=== PATIENT | male | born 1980 | race Two or more races ===

== ENCOUNTER 2019-11-28 19:52 | Emergency (ER) | payer OTHER ==
[~2019-11-28] VITALS: Ht 172.7 cm; Wt 78.0 kg
[2019-11-28] MEDS ORDERED: LORAZEPAM INJ 2 MG/ML VIAL ONE (19:57)
[2019-11-28] MEDS ORDERED: HALOPERIDOL LACTATE INJ 5 MG/ML VIAL ONE (19:57)
[2019-11-28] MEDS ORDERED: diphenhydrAMINE HCL 50 MG/ML VIAL ONE (19:57)
[2019-11-28] MEDS ORDERED: diphenhydrAMINE HCL 50 MG/ML VIAL IM ONE (20:00)
--- NOTE | 2019-11-28 20:00 | NUR ---
PT MARIO AND [employer] FROM STREET. PER RA, PT WAS COMPLAINING OF SUICIDAL IDEATION AND [employer] WAS TRANSFERRING PT TO PSYCH FACILITY. EN ROUTE, PT STARTED COMPLAINING OF ABDOMINAL PAIN AND WAS BROUGHT TO [facility] ER. PT AWAKE, VERBALLY AND PHYSICALLY AGGRESSIVE TOWARDS STAFF ON ARRIVAL. PT PLACED ON MONITOR, WILL CONTINUE TO MONITOR
--- NOTE | 2019-11-28 20:15 | NUR ---
IV INITIATED LAC 18G LABS DRAWN FROM SITE, PAROLE HEARING OFFICER AT BEDSIDE FOR COLLECTION. IV INTACT AND PATENT, PLACED ON SALINE LOCK
--- NOTE | 2019-11-28 20:20 | NUR ---
URINE COLLECTED AND SENT TO LAB
[2019-11-28 20:22] LABS: BASOPHILS # (AUTO) 0.1 /CMM (0.0-0.2); BASOPHILS % (AUTO) 0.8 % (0.0-2.0); EOSINOPHILS % (AUTO) 0.8 % (0.0-6.0); HEMATOCRIT 37 % (39-51); HEMOGLOBIN 12.6 g/dL (13.5-17.5); LYMPHOCYTES % (AUTO) 21.8 % (20.0-44.0); MEAN CORPUSCULAR HGB CONC 34 g/dl (31.0-36.0); MEAN CORPUSCULAR VOLUME 88 fL (80-96); MONOCYTES # (AUTO) 0.8 /CMM (0.1-1.30); MONOCYTES % (AUTO) 8.7 % (2.0-12.0); NEUTROPHILS # (AUTO) 6.4 /CMM (1.8-8.9); NEUTROPHILS % (AUTO) 67.9 % (43.0-81.0); PLATELET COUNT (AUTO) 273 /CMM (150-450); RED BLOOD CELL COUNT(AUTO) 4.16 MIL/uL (4.5-6.0); WHITE BLOOD COUNT (AUTO) 9.4 K/uL (4.3-11.0)
--- NOTE | 2019-11-28 20:28 | NUR ---
PT BROUGHT BY RADIOLOGY TO CT
[2019-11-28] MEDS ORDERED: HALOPERIDOL LACTATE INJ 5 MG/ML VIAL IM ONE (20:30)
[2019-11-28] MEDS ORDERED: LORAZEPAM INJ 2 MG/ML VIAL IM ONE (20:30)
[2019-11-28 20:32] LABS: CALCIUM, SERUM 8.9 mg/dL (8.5-10.1); CARBON DIOXIDE 23 mmol/L (21-32); CHLORIDE 98 mmol/L (98-107); CREATININE 1.3 mg/dL (0.6-1.3); GLUCOSE 108 mg/dL (74-106); POTASSIUM 3.4 mmol/L (3.5-5.1); SODIUM SERUM 133 mmol/L (136-145); UREA NITROGEN, BLOOD 18 mg/dL (7-18)
[2019-11-28 20:37] LABS: ALANINE AMINOTRANSFERASE 29 U/L (12-78); ALBUMIN 3.8 g/dL (3.4-5.0); ALKALINE PHOSPHATASE 87 U/L (46-116); ASPARTATE AMINOTRANSFERASE 32 U/L (15-37); BILIRUBIN,DIRECT 0.3 mg/dL (0.0-0.2); BILIRUBIN,TOTAL 1.1 mg/dL (0.2-1.0); TOTAL PROTEIN, SERUM 9.8 g/dL (6.4-8.2)
[2019-11-28 20:38] LABS: ACETAMINOPHEN < 2 ug/ml (10-30); ALCOHOL, BLOOD < 3 mg/dL (0-0); SALICYLATE < 2.8 mg/dL (2.8-20.0)
[2019-11-28 20:43] LABS: APPEARANCE,URINE Slightly Cloudy (CLEAR); BILIRUBIN,URINE SMALL (NEGATIVE); BLOOD, URINE Large Ery/uL (NEGATIVE); COLOR,URINE Yellow (YELLOW); KETONES,URINE 15 (NEGATIVE); LEUKOCYTE ESTERASE ,URINE Small (NEGATIVE); NITRITE, URINE Negative (NEGATIVE); PH,URINE 5.5 (5.0-8.0); PROTEIN,URINE >=300 mg/dl (NEGATIVE); UGLUCOSE Negative (NEGATIVE); UROBILINOGEN,URINE 0.2 EU/dL (0.2)
[2019-11-28 20:51] LABS: BACTERIA,URINE Moderate /HPF (None Seen); RBC,URINE 51-80 /HPF (0-2); SQUAMOUS EPITHELIAL CELL,UR Few /HPF (None Seen)
[2019-11-28] MEDS ORDERED: PIPERACILLIN /TAZOBACTAM 3.375 G in IV D5W 50 ML IV ONE (21:30)
[2019-11-28] MEDS ORDERED: POTASSIUM CL. PREMIX PERIPHER. 50 ML IV STA (21:44)
[2019-11-28] MEDS ORDERED: PIPERACILLIN /TAZOBACTAM 3.375 G VIAL IV ONE (21:45)
--- NOTE | 2019-11-28 21:47 | NUR ---
CALLED FOR [employer] APPRAISAL SPECIALIST, AWAITING CALL.
--- NOTE | 2019-11-28 21:55 | NUR ---
PAGED VAISHNAVI PROCTOR
--- NOTE | 2019-11-28 21:56 | NUR ---
DR EDMONDS IS ON THE PHONE WITH DR LARES
--- NOTE | 2019-11-28 21:56 | NUR ---
PT IS GOING TO [facility]
--- NOTE | 2019-11-28 22:07 | NUR ---
PER DR. LARES, UROLOGY MD STATES PT CAN BE DISCHARGED, NO NEED FOR ADMISSION. PT CURRENTLY LETHARGIC, ONCE AWAKE CAN BE EVALUATED BY CRISIS FOR SUICIDAL IDEATION/ HOLD PLACED BY [employer]
[2019-11-28] MEDS ORDERED: POTASSIUM CHLORIDE 20 MEQ TAB.PRT.SR PO ONE (23:30)
--- NOTE | 2019-11-29 01:46 | NUR ---
PATIENT IS AWAKE. AAOX4. NO SOB. BREATHING EVENLY AND UNLABORED ON ROOM AIR. CONNECTED TO MONITOR. SITTER AT BEDSIDE.
--- NOTE | 2019-11-29 01:48 | NUR ---
PATIENT ABLE TO SWALLOW WATER AND EAT FOOD.
[2019-11-29] MEDS ORDERED: POTASSIUM CHLORIDE 20 MEQ TAB.PRT.SR PO ONE (01:49)
--- NOTE | 2019-11-29 04:48 | NUR ---
PT NOW AAOX4. CALLED IT[facility] DUNLAP FOR CRISIS EVALUATION. NO ANSWER, LEFT MESSAGE. WILL FOLLOW UP
--- NOTE | 2019-11-29 05:30 | NUR ---
CALLED [facility] DUNLAP FOR EVALUATION. NO ANSWER, WILL FOLLOW UP
--- NOTE | 2019-11-29 06:09 | NUR ---
PATIENT IS SLEEPING. EASILY AROUSABLE THROUGH TOUCH AND VERBAL STIMULI. CONNECTED TO MONITOR. BREATHING EVENLY AND UNLABORED ON ROOM AIR. CONNECTED TO MONITOR. SITTER AT BEDSIDE
--- NOTE | 2019-11-29 06:27 | NUR ---
CALLED [facility] DUNLAP FOR EVALUATION. NO ANSWER, WILL FOLLOW UP
--- NOTE | 2019-11-29 08:26 | NUR ---
BREAKFAST TRAY PROVIDED, TOLERATING PO WELL
--- NOTE | 2019-11-29 11:44 | NUR ---
PATIENT ASLEEP IN BED, EASILY AROUSABLE BY VOICE. HOOKED TO MONITOR, VSS. WILL CONTINUE TO MONITOR ACCORDINGLY, SITTER AT BEDSIDE FOR SAFETY
[2019-11-29] MEDS ORDERED: HALOPERIDOL LACTATE INJ 5 MG/ML VIAL IM ONE (14:30)
[2019-11-29] MEDS ORDERED: MIDAZOLAM HCL 2 MG/2ML VIAL IM ONE (14:30)
[2019-11-29] MEDS ORDERED: HALOPERIDOL LACTATE INJ 5 MG/ML VIAL ONE (14:33)
[2019-11-29] MEDS ORDERED: MIDAZOLAM HCL 2 MG/2ML VIAL ONE (14:33)
--- NOTE | 2019-11-29 15:04 | NUR ---
[facility] received a call from ED RN Christophe requesting for SW to speak to the pt. Per MD notes, pt is a 38-year-old male, who presented to the ER yesterday because of acute suicidal ideation and acute abdominal pain. [employer] was called because he was verbal and that he was suicidal. However because he has abdominal pain EMS was called as well. CELSO and ITZ Saeed met with the pt bedside. Pt is alert and oriented x 4. Pt appears unkempt and disheveled. Pt UDS is positive for methamphetamines and cannabinoids. Pt reports he is actively suicidal with a plan to cut his wrists. Pt is requesting to go to [facility]. [facility] to initiate the process. [facility] contacted Harpreet at [facility] to initiate voluntary psychiatric hospitalization.
--- NOTE | 2019-11-29 15:15 | NUR ---
Clinicals faxed to [facility] intake dept and ED CRN Gener has been updated. Per Harpreet at [facility] they will have a bed for the pt. Water Filterer is available for support as needed.
--- NOTE | 2019-11-29 15:52 | NUR ---
FAXED CLINICALS TO [facility]
--- NOTE | 2019-11-29 17:18 | NUR ---
PATIENT ACCEPTED TO [facility]. PATIENT WILL GO TO UNIT [address] ACCEPTING: DR VELASQUEZ NO. FOR REPORT: [phone] EXT [phone]
--- NOTE | 2019-11-29 17:28 | NUR ---
REPORT GIVEN TO PEDRO MOBLEY OF [facility]
--- NOTE | 2019-11-29 17:35 | NUR ---
CALLED [id number] WILL CALL BACK WITH ETA RES#[id number]
--- NOTE | 2019-11-29 18:16 | NUR ---
[facility] ETA 2000
[2019-11-29] MEDS ORDERED: SULFAMETH/TRIMETH 800/160 MG 1 UDTAB TABLET PO ONE (19:30)
[2019-11-29] MEDS ORDERED: SULFAMETH/TRIMETH 800/160 MG 1 UDTAB TABLET ONE (19:49)
--- NOTE | 2019-11-29 20:34 | NUR ---
REPORT GIVEN TO [facility] FOR TRANSPORTATION [place]. PT TRANSFERRED TO [facility] IN STABLE CONDITION.
[2019-11-29 20:59] VITALS: BP 118/79
== END 2019-11-29 21:03 | disposition other institution (70) ==
LOC: ER 19:53 → EDBD 19:53 → MED 22:05 → UNDOADMIN 22:05 → ER 11-29 21:03
DX: R45.851 Suicidal ideations (principal); N39.0 Urinary tract infection, site not specified; E87.6 Hypokalemia; R94.5 Abnormal results of liver function studies; F19.10 Other psychoactive substance abuse, uncomplicated; D64.9 Anemia, unspecified
CPT/HCPCS: 36415; 74176; 80048; 80076; 80305; 80307; 80329; 81001; 83690; 85025; 87086; 96365; 96372 ×4; 99285; G0480; J1200; J1630 ×2; J2060; J2250; J2543 ×2; J7060; 81000-TC; 87081-TC